=== PATIENT | female | born 1980 | race Caucasian/White ===

== ENCOUNTER 2016-04-19 20:51 | Emergency (ER) ==
[2016-04-19] MEDS ORDERED: ATIVAN IV ONE (21:27)
--- NOTE | 2016-04-19 21:37 | PROVIDER DOCUMENTATION ---
HPI-Neurological Disorder <Andrei Ag - Last Filed: 04/19/16 23:52> - General Source: patient - History of Present Illness-Neuro Severity: reports: moderate Onset/Duration: reports: unsure, just prior to arrival Timing: reports: improving Context: reports: found unresponsive by family Character of Altered Mental Status: reports: N/A New weakness or altered sensation location:: reports: none Cognitive Baseline: alert, oriented x3 Gait Baseline: walks without assistance Associated Symptoms: reports: fainting, loss of consciousness, muscle spasms, seizures, trouble walking, weakness. denies: short of breath, dizziness, confusion, chest pain, neck/back pain, fatigue, nausea, numbness in legs/feet, slurred speech, tingling in legs/feet, vomiting, vision changes - Seizure First time to have a seizure?: No Witnessed seizure?: No Episode details: reports: unknown duration, unknown number Episode Frequency: rare episodes Character of Seizure: reports: lost consciousness, generalized shaking all over <Parker Azevedo - Last Filed: 04/20/16 00:02> - General Chief Complaint: Seizure Stated Complaint: SEIZURES Time Seen by Provider: 04/19/16 21:15 Allergies/Adverse Reactions: Patient Allergies Allergy/AdvReac Type Severity Reaction Status Date / Time Pertussis Vaccines Allergy SWELLING Verified 04/19/16 21:20 Home Medications: Home Medication List Medication Instructions Recorded Confirmed Last Taken Type Amlodipine Besylate [Norvasc] 5 mg PO DAILY #0 tablet 04/29/14 04/19/16 Rx ENALApril [Vasotec] 10 mg PO DAILY #30 tablet 04/19/16 Unknown Rx Levetiracetam [Keppra] 500 mg PO BID 04/19/16 04/19/16 04/18/16 08:00 History Phenytoin Sodium Extended 200 mg PO DAILY 04/19/16 04/19/16 04/18/16 08:00 History - History of Present Illness-Neuro Nature of Presenting Problem: Pt is a 35 yof who presents to ER via EMS after having seizure-like symptoms. Pt reports that she was running water to take a bath, but does not remember getting in the bathtub, but pt's boyfriend said that he could hear water pouring out of the bathtub. Pt then reports that she tried to stand up while in the bathtub, but had a syncopal episode and hit her head on the ground with loss of consciousness. Pt does report hx of seizures. Pt's boyfriend reports that he checked her B/P after she fell out of the bath and said it was 189/123, so he gave pt her B/P rx, and seizure medicine and called EMS. On exam, pt was tremorous. (Parker Azevedo) Review of Systems - Adult - REVIEW OF SYSTEMS - ADULT Constitutional: denies: chills, fever, fatique, night sweats Eyes: reports: no symptoms reported Ears, Nose, Mouth & Throat: reports: no symptoms reported Cardiovascular: denies: chest pain, edema, heart murmur, irregular heart rate, palpitations, poor circulation, syncope Respiratory: denies: chronic cough, cough, dyspnea on exertion, excessive sputum production, hemoptysis, pleurisy, shortness of breath, wheezing Gastrointestinal: reports: no symptoms reported Genitourinary: reports: no symptoms reported Musculoskeletal: reports: no symptoms reported Integumentary: reports: no symptoms reported Neurological: reports: headache/migraines, loss of balance, seizure, syncope, tremors. denies: ataxia, dizziness/vertigo, numbness, paresthesia, slurred speech Psychiatric: reports: no symptoms reported Endocrine: reports: no symptoms reported Hematologic/Lymphatic: reports: no symptoms reported Allergic/Immunologic: reports: no symptoms reported All Other Systems: Reviewed and Negative <Parker Azevedo - Last Filed: 04/20/16 00:02> Past History - Adult - PAST MEDICAL HISTORY-ADULT Review of Records: reports: Nursing Assessment Review, Medications Reviewed Neurological: reports: Seizures/Epilepsy Endocrine/Immune: reports: hypoglycemia - IMMUNIZATION STATUS Childhood Immunizations: See Nurse Assessment Flu Vaccine: See Nurse Assessment <Parker Azevedo - Last Filed: 04/20/16 00:02> Physical Exam- Neurological - Physical Exam-Neuro Initial Vital Signs Reviewed: Yes General Appearance: appears well, alert, moderate distress, anxious Eye Exam: bilateral eye: normal inspection, PERRL, EOMI Head Injury: no evidence of injury. negative: active bleeding, contusions, swelling, tenderness Neck: non-tender, full range of motion, supple. negative: C-spine tenderness, limited range of motion, lymphadenopathy Respiratory: chest non-tender, lungs clear, normal breath sounds, no respiratory distress, no accessory muscle use. negative: respiratory distress, decreased breath sounds, accessory muscle use, crackles, rales, rhonchi Cardiovascular: normal peripheral pulses, regular rate, rhythm. negative: bradycardia, tachycardia, diastolic murmur, systolic murmur, irregularly irregular Abdominal Exam: normal bowel sounds, non tender, soft. negative: distended, rebound, tenderness, mass Lymphatic: no adenopathy. 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 negative: abnormal eye position , abnormal speech, facial droop, facial paresthesias, facial weakness, gaze palsy, hearing deficit (R), hearing deficit (L), tongue deviation to R, tongue deviation to L Coordination/Gait: normal finger to nose, normal gait. negative: abnormal gait , ABN nose to finger (R), ABN nose to finger (L) Motor/Sensory: no motor deficit, no sensory deficit, no pronator drift. negative: pronator drift (R), pronator drift (L), sensory deficit, weak motor strength RUE, weak motor strength LUE, weak motor strength RLE, weak motor strength LLE Neurologic: grossly normal, no motor/sensory deficits, other (tremorous). negative: facial droop, focal weakness, motor weakness, sensory deficit Integumentary: normal color, normal turgor, warm/dry. negative: abrasion(s), diaphoresis, erythema, laceration(s), rash, swelling, tenderness, warm Psych/Mental Status: normal thought content, normal thought process, oriented x 3, anxious <Parker Azevedo - Last Filed: 04/20/16 00:02> Progress <Andrei Ag - Last Filed: 04/19/16 23:52> - REASSESSMENT Reassessment #1 Time Reassessed: 23:12 Status: other (Dr. Ag discussed results of pt's lab results, and pt admitted to drinking about a pint of alcohol a day.) <Parker Azevedo - Last Filed: 04/20/16 00:02> - PLAN OF CARE/RESULTS Progress/Plan/Lab Results: POC: IV/labs Vital Signs - 24 hr 04/19/16 20:54 Temperature 98.5 F Pulse Rate 96 H Respiratory 20 Rate Blood Pressure 150/102 O2 Sat by Pulse 99 Oximetry Orders Category Date Time Status CBC WITH ELECTRONIC DIFF [HEME] Stat Lab 04/19/16 21:45 Completed CMP [COMPREHENSIVE METABOLIC PANEL] [CHEM] Stat Lab 04/19/16 21:45 Completed Dilantin [PHENYTOIN] [TDM] Stat Lab 04/19/16 21:45 Completed LIPASE [CHEM] Stat Lab 04/19/16 21:45 Completed MAGNESIUM [CHEM] Stat Lab 04/19/16 21:45 Completed UA Reflex [URINALYSIS W/POSS RFLX CULT] [URINALYSIS] Lab 04/19/16 21:45 Completed Stat URINE CULTURE [RM] Routine Lab 04/19/16 22:35 Received Lorazepam [Ativan] Med 04/19/16 21:27 Discontinued 1 mg IV NOW ONE Magnesium Sulfate 2 gm/50 ml Over 1 Hr Med 04/19/16 23:12 Ordered Magnesium Sulfate 2 gm/S.w.i. [Magnesium Sulfate 2 gm/S .w.i] 50 ml IV NOW Laboratory Tests 04/19/16 04/19/16 04/19/16 21:45 21:45 21:45 WBC 4.99 RBC 2.95 L Hgb 11.4 L Hct 32.1 L MCV 108.8 H MCH 38.6 H MCHC 35.5 RDW Std Deviation 12.1 Plt Count 116 L MPV 9.9 Immature Gran % (Auto) 0.0 Neut % (Auto) 74.0 Lymph % (Auto) 11.0 L [place] % (Auto) 14.2 H Eos % (Auto) 0.2 Baso % (Auto) 0.6 Immature Gran # (Auto) 0.00 Neut # (Auto) 3.69 Lymph # (Auto) 0.55 L [place] # (Auto) 0.71 H Eos # (Auto) 0.01 Baso # (Auto) 0.03 Sodium 136 Potassium 3.4 L Chloride 91 L Carbon Dioxide 28 Anion Gap 17 BUN 6 L Creatinine 0.4 L Estimated GFR/1.73 m2 > 60 BUN/Creatinine Ratio 15 Glucose 94 Calculated Osmolality 269 Calcium 8.8 Magnesium 1.0 L* Total Bilirubin 2.77 H AST 303 H ALT 86 H Alkaline Phosphatase 233 H Total Protein 6.9 Albumin 4.3 Globulin 2.6 Albumin/Globulin Ratio 1.7 Lipase 51 Urine Source CLEAN CATCH Urine Color YELLOW Urine Turbidity HAZY Urine pH 7.5 Ur Specific [place] 1.019 Urine Protein 50 A Ur Glucose (Stick) NEGATIVE Ur Ketones (Stick) 20 A Urine Blood NEGATIVE Urine Nitrite NEGATIVE Urine Bilirubin NEGATIVE Urobilinogen Dipstick 3 A Urine Leukocytes SMALL A Urine WBC (Auto) 10-20 A Urine RBC (Auto) <10 U Epithel Cells (Auto) <10 Urine Bacteria (Auto) 4+ Total Phenytoin 4.20 L (Parker Azevedo) Departure - Departure Certified Medical Emergency: Emergent <Andrei Ag - Last Filed: 04/19/16 23:52> - Departure Time of Disposition Order: 00:02 Certified Medical Emergency: Emergent <Parker Azevedo - Last Filed: 04/20/16 00:02> - Departure DIAGNOSIS: Alcohol abuse, Hypomagnesemia Seizure Qualifiers: Convulsion type: unspecified Qualified Code(s): R56.9 - Unspecified convulsions Hypertension Qualifiers: Hypertension type: essential hypertension Qualified Code(s): I10 - Essential ( primary) hypertension Disposition: HOME 01 Condition: Fair Additional Instructions: contact [employer] [facility] at [facility] to get help for your alcohol problem. They can be reached M- 9-4. ED Follow Up Instructions: You have been treated by a care provider in the Emergency Department. These instructions are being provided to you so you can have an understanding of how to care for yourself upon discharge. Upon discharge from the Emergency Department, you are responsible for making arrangements for follow-up care by a physician of your choice. Take all prescribed medications as directed. Return to the Emergency Department immediately for any new or worsening symptoms. You may call the Physician Referral phone number at [phone] to obtain a list of Physicians who are taking new patients. Prescriptions: ENALApril [Vasotec] 10 mg PO DAILY #30 tablet Referrals: Yandy Mccoy III, MD [Primary Care Provider] - Attestation - Scribe Verification/Attestation Scribe:: Parker Azevedo Acting as Scribe for:: Andrei Ag Scribe documention review:: This chart was documented by a scribe and accurately reflects the service the provider performed and the decisions made by the provider. <Parker Azevedo - Last Filed: 04/20/16 00:02> Physician Attestation
[2016-04-19 21:57] LABS: URINE MICRO REVIEW NEEDED? NO; URINE SOURCE CLEAN CATCH
[2016-04-19 22:20] LABS: BILIRUBIN URINE NEGATIVE (NEGATIVE); BLOOD URINE NEGATIVE (NEGATIVE); COLOR YELLOW; GLUCOSE URINE NEGATIVE (NEGATIVE); LEUKOCYTES URINE SMALL (NEGATIVE); NITRITE URINE NEGATIVE (NEGATIVE); PH URINE 7.5; PROTEIN URINE 50 mg/dL (NEGATIVE); SP GRAVITY URINE 1.019; TURBIDITY URINE HAZY (CLEAR); UROBILINOGEN URINE 3 mg/dL (NORMAL)
[2016-04-19 22:22] LABS: BASO% 0.6 % (0.0-0.8); EOS# 0.01 X1000 (0.0-0.7); EOS% 0.2 % (0.0-10.0); HEMATOCRIT 32.1 % (37.0-47.0); HEMOGLOBIN 11.4 g/dL (12.0-16.0); LYMPH# 0.55 X1000 (1.2-3.4); MANUAL DIFF NEEDED? NO; MCH 38.6 PG (27-31); MCHC 35.5 g/dL (33-37); MCV 108.8 FL (81-99); MONO# 0.71 X1000 (0.11-0.59); MONO% 14.2 % (1.7-9.3); MPV 9.9 FL (7.4-10.4); PLT 116 X1000 (130-400); RBC 2.95 XMIL (4.2-5.4); UR EPITHELIAL CELLS <10 /HPF (<10); URINE RBC <10 /HPF (<10)
[2016-04-19 22:35] LABS: URINE BACTERIA 4+ /HPF; URINE CULTURE NEEDED? YES
[2016-04-19 23:03] LABS: AGAP 17; ALBUMIN 4.3 g/dL (3.5-5.0); ALKALINE PHOSPHATASE 233 U/L (32-104); BUN 6 mg/dL (8-22); CALCIUM 8.8 mg/dL (8.8-10.2); CHLORIDE 91 mmol/L (98-107); COSMO 269; GOT 303 U/L (10-30); GPT 86 U/L (10-36); LIPASE 51 U/L (13-60); POTASSIUM 3.4 mmol/L (3.5-5.1); SODIUM 136 mmol/L (136-145); TCO2 28 mmol/L (25-35); TOTAL BILIRUBIN 2.77 mg/dL (0.20-1.00); TOTAL PROTEIN 6.9 g/dL (6.3-8.3)
[2016-04-19] MEDS ORDERED: M.V.I.-12 10 ML, FOLIC ACID 1 MG, MAGNESIUM SULFATE 1 GM, THIAMINE 100 MG in NS 1,000 ML IV ONE (23:12)
[2016-04-19] MEDS ORDERED: MAGNESIUM SULFATE 2 GM/S.W.I. 50 ML IV ONE (23:12)
[2016-04-20 01:29] VITALS: BP 129/92
== END 2016-04-20 01:20 | disposition home or self-care (01) ==
LOC: ED 20:51
DX: R56.9 Unspecified convulsions (principal); E83.42 Hypomagnesemia; I10 Essential (primary) hypertension; F10.10 Alcohol abuse, uncomplicated; R55 Syncope and collapse; R25.1 Tremor, unspecified; M62.838 Other muscle spasm; Z79.899 Other long term (current) drug therapy; W22.09XA Striking against other stationary object, initial encounter
CPT/HCPCS: 36415; 80053; 80185; 81001; 83690; 83735; 85025; 87077; 87088; 87186; 96365; 96368; 96375; J2060; J3411; J3475; J7030